=== PATIENT | female | born 1955 | race Caucasian/White ===

== ENCOUNTER 2018-11-01 07:47 | Emergency (ER) | payer MEDICARE, MEDICAID ==
[~2018-11-01] VITALS: Ht 162.6 cm; Wt 68.6 kg
[~2018-11-01 07:47] MED LIST: CYCL-1 PO; HYDR-4353 PO
[2018-11-01 08:10] VITALS: BP 113/71
--- NOTE | 2018-11-01 09:08 | NUR ---
PT REFUSED ICE PACK
[2018-11-01] MEDS ORDERED: LIDOcaine 5% patch TP STA (09:32)
[2018-11-01] MEDS ORDERED: triamcinolone acetonide 40mg/ml inj IM ONE (09:35)
[2018-11-01] MEDS ORDERED: ketorolac trometh inj. 60 MG/2 ML VIAL IM ONE (09:35)
[2018-11-01] MEDS ORDERED: METH4TAB81 PO (09:56)
== END 2018-11-01 10:10 | disposition home or self-care (01) ==
LOC: ER 07:48
DX: M43.6 Torticollis (principal); M25.511 Pain in right shoulder; G89.29 Other chronic pain; Z88.8 Allergy status to other drugs, medicaments and biological substances; Z79.899 Other long term (current) drug therapy; X58.XXXA Exposure to other specified factors, initial encounter; Y93.89 Activity, other specified; Y92.89 Other specified places as the place of occurrence of the external cause; Y99.8 Other external cause status
CPT/HCPCS: 96372; 99283; J1885; J3301

== ENCOUNTER 2019-08-08 07:51 | Emergency (ER) | payer MEDICAID, MEDICARE ==
[~2019-08-08] VITALS: Ht 162.6 cm; Wt 71.9 kg
[~2019-08-08 07:51] MED LIST changes: +METH4TAB81 PO
[2019-08-08] MEDS ORDERED: ketorolac trometh inj. 60 MG/2 ML VIAL IM ONE (08:25)
[2019-08-08] MEDS ORDERED: diazepam 5mg tablet PO ONE (08:25)
[2019-08-08] MEDS ORDERED: HYDROcodone/acetaminophen 5mg/325mg tablet PO ONE (08:25)
[2019-08-08] MEDS ORDERED: METH500T6 PO (08:27)
[2019-08-08] MEDS ORDERED: ACET-3067 PO (08:27)
[2019-08-08 08:39] VITALS: BP 133/96
== END 2019-08-08 08:40 | disposition home or self-care (01) ==
LOC: ER 07:52
DX: M54.12 Radiculopathy, cervical region (principal); G89.29 Other chronic pain; F17.200 Nicotine dependence, unspecified, uncomplicated; Z88.8 Allergy status to other drugs, medicaments and biological substances; Z79.899 Other long term (current) drug therapy
CPT/HCPCS: 96372; 99283; J1885

== ENCOUNTER 2019-08-12 07:56 | Emergency (ER) | payer MEDICARE ==
[~2019-08-12] VITALS: Ht 162.6 cm; Wt 72.7 kg
[~2019-08-12 07:56] MED LIST changes: +ACET-3067 PO; +METH500T6 PO
[2019-08-12] MEDS ORDERED: LIDOcaine 1% 30ml preserv. free vial SQ STA (09:04)
[2019-08-12] MEDS ORDERED: ketorolac tromethamine 15mg/ml inj. IM ONE (09:05)
[2019-08-12 10:15] LABS: CLARITY,URINE SLIGHTLY CLOUDY (Clear); COLOR,URINE YELLOW (Yellow); GLUCOSE, URINE NEGATIVE (Neg); KETONES,URINE NEGATIVE (Neg); LEUKOCYTE ESTERASE ,URINE TRACE (Neg); NITRITES, URINE NEGATIVE (Neg); OCCULT BLOOD,URINE SMALL (Neg); PH,URINE 6.5 (4.8-8.0); PROTEIN,URINE NEGATIVE (Neg); UROBILINOGEN,URINE 0.2 E.U/dL (0.2-1.0)
[2019-08-12 10:19] LABS: UA COLLECTION TYPE CLN CATCH MIDSTREAM
[2019-08-12 10:30] LABS: BACTERIA,URINE NONE SEEN /HPF (Neg); MUCUS STRANDS MODERATE /LPF (Neg); RBC,URINE 0-2 /HPF (0-2); SQUAMOUS EPITHELIAL CELL,UR FEW /LPF (FEW); WBC,URINE 0-4 /HPF (0-4)
[2019-08-12] MEDS ORDERED: LIDOcaine 5% patch TP STA (10:45)
[2019-08-12] MEDS ORDERED: LIDO700A32 TOP (10:55)
[2019-08-12] MEDS ORDERED: BACL-11 PO (10:55)
[2019-08-12 11:14] VITALS: BP 135/84
== END 2019-08-12 11:17 | disposition home or self-care (01) ==
LOC: ER 07:57
DX: S16.1XXA Strain of muscle, fascia and tendon at neck level, initial encounter (principal); S13.4XXA Sprain of ligaments of cervical spine, initial encounter; M54.5 Low back pain; M25.512 Pain in left shoulder; R10.30 Lower abdominal pain, unspecified; G89.29 Other chronic pain; Z88.8 Allergy status to other drugs, medicaments and biological substances; Z79.899 Other long term (current) drug therapy; X58.XXXA Exposure to other specified factors, initial encounter; Y93.89 Activity, other specified; Y92.89 Other specified places as the place of occurrence of the external cause; Y99.8 Other external cause status
CPT/HCPCS: 20552; 72040; 72100; 81001; 87088; 96372; 99284; J1885

== ENCOUNTER 2022-07-29 10:13 | Emergency (ER) | payer BC ==
[~2022-07-29] VITALS: Ht 162.6 cm; Wt 72.6 kg
[2022-07-29 10:13] VITALS: BP 146/89
[~2022-07-29 10:13] MED LIST changes: -ACET-3067 PO; +ALBU8.5H17 INH; +APIX5TAB3 PO; -CYCL-1 PO; +HYDR-3972 PO; -HYDR-4353 PO; +IPRA4AER IH; +LEVO750T68 PO; -METH4TAB81 PO; -METH500T6 PO; +NICO-631 TD; +PRED20TA PO; +PREG50CA64 PO
[2022-07-29] MEDS ORDERED: LIDOcaine 5% patch TP STA (11:29)
[2022-07-29] MEDS ORDERED: ketorolac trometh. 30mg/ml inj. IM ONE (11:30)
[2022-07-29] MEDS ORDERED: LIDO-15 TOP (11:33)
[2022-07-29] MEDS ORDERED: BACL-11 PO (11:33)
== END 2022-07-29 11:49 | disposition home or self-care (01) ==
LOC: ER 10:13
DX: M54.9 Dorsalgia, unspecified (principal); G89.29 Other chronic pain; Z88.8 Allergy status to other drugs, medicaments and biological substances; Z79.899 Other long term (current) drug therapy
CPT/HCPCS: 96372; 99283; J1885

== ENCOUNTER 2022-09-28 15:24 | Emergency (ER) | payer BC ==
[~2022-09-28] VITALS: Ht 162.6 cm; Wt 70.8 kg
[~2022-09-28 15:24] MED LIST changes: +BACL-11 PO; +LIDO-15 TOP
[2022-09-28 15:44] VITALS: BP 158/80; PULSE 89; RESP 29; TEMP 98.3; O2SAT 97
[2022-09-28] MEDS ORDERED: LIDOcaine 5% patch TP STA (16:16)
[2022-09-28] MEDS ORDERED: BACL20TA PO (16:26)
[2022-09-28] MEDS ORDERED: METR-159 PO (16:26)
== END 2022-09-28 16:51 | disposition home or self-care (01) ==
LOC: ER 15:25
DX: M43.6 Torticollis (principal); R19.7 Diarrhea, unspecified; Z88.8 Allergy status to other drugs, medicaments and biological substances; Z79.2 Long term (current) use of antibiotics; Z79.899 Other long term (current) drug therapy
CPT/HCPCS: 72040; 99283

== ENCOUNTER 2024-09-25 10:24 | Inpatient (IN) | payer BC ==
[~2024-09-25] VITALS: Ht 162.6 cm; Wt 65.9 kg
[~2024-09-25 10:24] MED LIST changes: +BACL20TA PO; -PREG50CA64 PO; +PREG50CA65 PO
[2024-09-25 10:49] LABS: MEAN PLATELET VOLUME 8.1 FL (7.4-10.4); RED CELL DISTRIBUTION WIDTH 13.6 % (11.5-14.5)
[2024-09-25 11:04] LABS: CREATININE 0.66 MG/DL (0.40-0.90); TOTAL CARBON DIOXIDE 29.5 MMOL/L (24-32); eCRCL 69 ML/MIN; eGFR 89 ML/MIN
[2024-09-25 13:34] LABS: LEUKOCYTE ESTERASE ,URINE NEGATIVE (Neg); NITRITES, URINE NEGATIVE (Neg); OCCULT BLOOD,URINE TRACE-INTACT (Neg)
[2024-09-25 13:37] LABS: UA COLLECTION TYPE CLN CATCH MIDSTREAM
[2024-09-25 13:38] LABS: MUCUS STRANDS FEW /LPF (Neg); SQUAMOUS EPITHELIAL CELL,UR FEW /LPF (FEW)
--- NOTE | 2024-09-25 14:41 | Physician Documentation ---
History of Present Illness ~ Chief Complaint: Abdominal Pain Stated Complaint: ABD PAIN Time Seen by MD: 12:16 Primary Medical Doctor: DR HAMMER Source: patient Mode of Arrival: POV Exam Limitations: no limitations HPI Chief Complaint: Abdominal pain Caveat: None Independent Historians: None History of Present Illness: Patient is a 69-year-old woman who comes in complaining of right upper quadrant abdominal pain that radiates down around into the lower abdomen on the right. This began one week ago. Patient's pain is currently mild. Patient states that she wakes up with a pain every morning in his able to eat a small breakfast without any difficulties. But if she eats anything between breakfast and dinner she gets severe burning pain. No nausea or vomiting. No diarrhea. No blood in the urine or blood in the stool. No fever. No other alleviating or exacerbating factors other than if she eats lunch her pain gets worse. Review of systems: All systems were reviewed and are negative except for what is indicated in the history of present illness. Past Medical History: Chronic neck and back pain, arthritis Past Surgical History: None Social History: Tobacco use, denies alcohol use, denies drug use Medications: Reviewed as documented Nursing Notes Allergies: Reviewed as documented in Nursing Notes Medication Reconciliation Allergies: Coded Allergies: cyclobenzaprine (Verified Allergy, Unknown, TACHYCARDIA AND RESTLESS, 09/25/24) Scheduled Apixaban (Eliquis), 10 MG PO BID Baclofen (Baclofen), 1 TABLET PO TID Ipratropium/Albuterol Sulfate (Combivent Respimat Inhal [place]), 2 PUFFS IH BID Levofloxacin (Levofloxacin), 750 MG PO DAILY Nicotine 14 MG Patch* (Habitrol 14 MG Patch*), 1 PATCH TD DAILY Prednisone* (Prednisone*), 60 MG PO Q24H Pregabalin (Pregabalin), 1 CAP PO BID, (Reported) Scheduled PRN Albuterol Sulfate (Proair Hfa), 2 PUFFS INH Q4HPRN PRN for wheezing Baclofen (Baclofen), 1 TAB PO Q8H PRN for muscle spasms Hydrocodone Bit/Acetaminophen (Hydrocodon-Acetaminophn 10-325 tablet), 1 TAB PO QID PRN for moderate or severe pain 4-10, (Reported) Lidocaine/Menthol (Lidocaine-Menthol 4%-1% Patch), 1 PATCH TOP DAILY PRN for pain Past Medical History Past Medical History: Pneumonia, Chronic Back Pain, Breast Cancer Past Surgical History: no surgical history Alcohol Use: None Drug Use: none Lives with: Family Lives In: Home Occupation: retired Review of Systems All Other Systems at this time: Reviewed and Negative ROS Patient denies any other acute symptoms other than above. All other systems are negative Physical Exam Vital Signs: RN Vital Signs have been reviewed: Yes, Temperature: 98.7, Source: Oral, Heart Rate: 77, Respiratory Rate: 16, BP: 130/66, Pulse Oximetry: 97, Weight: 65.910 Oxygen Flow Rate: 0 Pulse Oximetry Reflects: adequate oxygenation Physical Exam General Appearance: No distress HEENT: Normal OP, moist oral mucosa, PERRL, EOMI Neck: supple, normal ROM, trachea midline Pulmonary: No respiratory distress, CTA, BS equal Cardiac: RRR, no murmur, rub or gallop, GI: nondistended, soft, NEGATIVE MEAD'S SIGN, FAR LATERAL RIGHT SUBCOSTAL TENDERNESS, REMAINING ABDOMEN IS NONTENDER normal bowel sounds, no guarding, no rebound Extremities: normal ROM, no swelling, non-tender Skin: intact, dry, warm, no rashes Neuro: AAOx3, speech is clear, no focal motor weakness Psych: normal affect, good eye contact, no apparent hallucination, normal speech Progress Results/Orders Results/Orders Orders - CARMINE AVERY MD Page Hospitalist (09/25/24 15:29) Fill Out Med Reconciliation (09/25/24 15:29) Completed Orders - CARMINE AVERY MD Cbc/Diff (09/25/24 10:32) BMP (09/25/24 10:32) Lipase (09/25/24 10:32) CMP (09/25/24 10:32) Ua W/Microscopic, Cult If Ind (09/25/24 13:22) Nicotine 14mg Patch-24hr (Habitrol Patch (09/25/24 16:50) Medications Received in ER Medications (Trade) Dose Ordered Sig/Glenn Route PRN Reason Start Time Stop Time Status Last Admin Dose Admin (Habitrol patch) 1 patch ONCE ONCE TD 09/25/24 16:50 09/25/24 16:51 DC 09/25/24 17:03 1 PATCH Vital Signs 09/25/24 09/25/24 09/25/24 09/25/24 10:26 12:49 12:49 13:31 Temp 98.7 Pulse 92 79 77 Resp 18 18 18 16 B/P (MAP) 14/ 133/65 (87) 130/66 (87) Pulse Ox 97 96 97 O2 Flow Rate 0 0 09/25/24 09/25/24 15:02 15:56 Pulse 79 83 Resp 18 16 B/P (MAP) 131/69 (89) 152/74 (100) Pulse Ox 95 96 O2 Flow Rate 0 0 Laboratory Tests Test 09/25/24 10:41 09/25/24 13:22 White Blood Count 7.5 Red Blood Count 4.88 Hemoglobin 14.5 Hematocrit 44.0 Mean Corpuscular Volume 90.1 Mean Corpuscular Hemoglobin 29.7 Mean Corpuscular Hemoglobin Concent 33.0 Red Cell Distribution Width 13.6 Platelet Count 228 Mean Platelet Volume 8.1 Neutrophils (%) (Auto) 73.0 Lymphocytes (%) (Auto) 16.7 L Monocytes (%) (Auto) 8.7 Eosinophils (%) (Auto) 1.2 Basophils (%) (Auto) 0.4 Neutrophils # (Auto) 5.5 Lymphocytes # (Auto) 1.3 Monocytes # (Auto) 0.7 Eosinophils # (Auto) 0.1 Basophils # (Auto) 0.0 CBC Comment Sodium Level 136 Potassium Level 3.9 Chloride Level 103 Carbon Dioxide Level 29.5 Anion Gap 4 L Blood Urea Nitrogen 7 Creatinine 0.66 Estimated GFR/1.73 m2 89 BUN/Creatinine Ratio 10.6 Glucose Level 111 H Calcium Level 8.8 Total Bilirubin 0.4 Aspartate Amino Transf (AST/SGOT) 19 Alanine Aminotransferase (ALT/SGPT) 26 Alkaline Phosphatase 71 Total Protein 8.0 Albumin 3.6 Globulin 4.4 H Albumin/Globulin Ratio 0.8 L Lipase 37 Chemistry Comments Urine Specimen Description Cln catch midstream Urine Color Yellow Urine Clarity Clear Urine pH 6.0 Urine Specific [place] 1.015 Urine Protein Negative Urine Glucose (UA) Negative Urine Ketones Negative Urine Occult Blood Trace-intact Urine Nitrite Negative Urine Bilirubin Negative Urine Urobilinogen 0.2 Urine Leukocyte Esterase Negative Urine RBC 0-2 Urine WBC 0-4 Urine Squamous Epithelial Cells Few Urine Bacteria None seen Urine Mucus Few Urine Culture Indicated Not ind Volume Urine Centrifuged 10 ml Urine Comment Medical Decision Making Findings Differential diagnosis includes but is not limited to: Acute cholecystitis, acute pancreatitis, cholelithiasis with biliary colic, choledocholithiasis, gastritis, duodenitis, peptic ulcer disease, gastric ulcer disease, hepatic steatosis Abdominal ultrasound, indication: Right upper quadrant abdominal pain Impression: 1. There is a stone in the neck of the gallbladder. There is no gall bladder thickening or biliary dilatation. Technologist reports a negative sonographic mead's sign. Laboratory data independent interpretation: CBC: Normal CMP: Normal, lipase 37 Urinalysis: Unremarkable Emergency department course/medical decision-making: PRESENTS WITH RIGHT UPPER QUADRANT ABDOMINAL PAIN. PATIENT'S ULTRASOUND SHOWS A GALLBLADDER WITH A NON MOBILE LODGED STONE IN THE NECK. PATIENT HAS NORMAL LFTS. NO EVIDENCE OF CHOLEDOCHOLITHIASIS. SURGERY BLEED CONSULTED. RECOMMEND ADMISSION FOR CHOLECYSTECTOMY. Test results, treatment plan and all the above discussed with the patient. Consultation/communications: 4:05 p.m.: General surgeon, Dr. Doan consulted. 4:43 p.m.: Case discussed with our resident hospitalist, Dr. Kramer. She will evaluate the patient for admission. Departure Time of Disposition: 15:27 Disposition: 09 ADMITTED INPATIENT Admitted to Inpatient Unit: to hospitalist Admission Level of Care: Med/Surg Impression: Primary Impression: Calculus of gallbladder with obstruction Qualified Codes: K80.21 - Calculus of gallbladder without cholecystitis with obstruction Condition: Stable Referrals: NO PRIMARY CARE PROVIDER (PCP) Education Educated: Patient Educated regarding: diagnosis, treatment Signature Scribe Signature: No scribe Attestation: No scribe CARMINE AVERY MD Sep 25, 2024 14:41
--- NOTE | 2024-09-25 15:23 | RADIOLOGY REPORT ---
Right Upper quadrant Abdominal ultrasound INDICATION: Right upper radiating to lower quadrant pain Technique: 2-D real-time ultrasound was performed with axial and sagittal images submitted for evalu ation. FINDINGS: Liver normal in size without focal mass. Liver measures 13.2 cm there is a 9 x 5 x 10 mm stone in the neck of the gallbladder which is non mobile. No gallbladder wal l thickening. Negative sonographic castaneda's sign. Common bile duct normal in size measuring 5. mm. Right kidney 10 cm in length without stone or hydronephrosis IMPRESSION: 1. There is a stone in the neck of the gallbladder. There is no gallbladder thickening or biliary dil atation. Technologist reports a negative sonographic castaneda's sign.
[2024-09-25] MEDS ORDERED: magnesium sulf-water 4G/100mL 100 ML IV PRN (17:00)
[2024-09-25] MEDS ORDERED: magnesium hydroxide 30ml (MOM) UD suspension PO PRN (17:00)
[2024-09-25] MEDS ORDERED: potassium Cl 40MEQ/1/2NS 520ml 520 ML IV PRN (17:00)
[2024-09-25] MEDS ORDERED: mag hydrox/Alum hydrox/simeth 30ml oral suspension PO PRN (17:00)
[2024-09-25] MEDS ORDERED: HYDROcodone/acetaminophen 10/325mg tab PO PRN (17:00)
[2024-09-25] MEDS ORDERED: magnesium sulf-water 2g/50mL 50 ML IV PRN (17:00)
[2024-09-25] MEDS ORDERED: potassium Cl 20 mEq SR tablet PO PRN (17:00)
[2024-09-25] MEDS ORDERED: ondansetron/PF 4mg/2ml inj IV PRN (17:00)
--- NOTE | 2024-09-25 17:02 | HISTORY AND PHYSICAL ---
History & Physical Providers to CC ~ History of Present Illness Reason for Admit\Complaint: Symptomatic cholelithiasis History of Present Illness Jessica Lawson is a 69-year-old female with past medical history of breast cancer in remission, PE, COPD who presented to the ED with chief complaint of acute onset right upper quadrant abdominal pain that radiates down right lower quadrant abdomen x 1 week. Patient reports associated symptoms of nausea and right upper quadrant abdominal pain with food intake. Patient denies prior KS/CAD, CVA, cardiac arrhythmia, or GIB. Patient denies chest pain, palpitations, shortness of breath, vomiting, diarrhea, melena, hematochezia, hematemesis, dysuria, fever, chills. Initial diagnostic findings are notable for ultrasound abdomen revealing gallstone in the neck of the gallbladder without gallbladder thickening, biliary dilatation, negative sonographic Dunaway's sign. Pertinent negative findings are normal wbc, lipase, LFT, t.bili, afebrile. Surgeon Dr. Doan is consulted. Patient is to be admitted for further workups, treatment, and surgical intervention. Allergies: Coded Allergies: cyclobenzaprine (Verified Allergy, Unknown, TACHYCARDIA AND RESTLESS, 09/25/24) Home Medications Home Medications Active Baclofen 20 Mg Tablet 1 Tablet PO TID Baclofen 10 Mg Tablet 1 Tab PO Q8H PRN 10 Days Lidocaine-Menthol 4%-1% Patch (Lidocaine/Menthol) 1 Each Adh..patch 1 Patch TOP DAILY PRN 10 Days Combivent Respimat Inhal [place] (Albuterol/Ipratropium) 4 Gm Aer.w.adap 2 Puffs IH BID Proair Hfa (Albuterol Sulfate) 1 Puff Inh 2 Puffs INH Q4HPRN PRN 21 Days Levofloxacin 750 Mg Tablet 750 Mg PO DAILY Prednisone* (Prednisone) 20 Mg Tablet 60 Mg PO Q24H 3 tabs daily x 5 days- then 2 tabs daily x 5 days - then 1 tab daily x 5 days Habitrol 14 MG Patch* (Nicotine) 1 Each Patch.td24 1 Patch TD DAILY Eliquis (Apixaban) 5 Mg Tablet 10 Mg PO BID 2 tablets twice a day x5 days then 1 tablet twice a day Reported Pregabalin 50 Mg Capsule 1 Cap PO BID Hydrocodon-Acetaminophn 10-325 tablet (Acetaminophen/Hydrocodone Bitart) 1 Each Tablet 1 Tab PO QID PRN Past Medical History Past Medical History Left breast cancer in remission COPD Pulmonary embolism Chronic pain syndrome Lower back pain Sciatica Past Surgical History Surgical History Comment Left breast lumpectomy Appendectomy Past Social History Social History Comment Alcohol: Denies Tobacco: Current smoker, 30-pack year history Illicit drug use: Denies Living situation: Lives at home with ROS ROS Other than positives in HPI, all 14 review of systems are negative Exam Vitals: Vital Signs Date Time Temp Pulse Resp B/P (MAP) Pulse Ox O2 Delivery O2 Flow Rate FiO2 09/25/24 15:56 83 16 152/74 (100) 96 0 09/25/24 10:26 98.7 General: A&Ox 3, NAD HEENT: Normocephalic, PERRLA Neck: Supple, trachea midline, no JVD Chest: Clear to auscultation bilaterally Cardiovascular: RRR, S1&S2 Abdomen: Positive Dunaway sign, negative rebound tenderness Extremities: No cyanosis/clubbing/or edema Central Nervous System: CN II-XII intact, no focal deficits Musculoskeletal: No paraspinal muscle tenderness, no muscle spasm Skin: Warm and intact Diagnostic Data Last Recorded Lab Results: 09/25/24 1041 09/25/24 1041 Counseling Services Smoking & Tobacco Cessation: > 10 Minutes Additional Plan Assessment & Plan Symptomatic cholelithiasis -wbc wnl, afebrile, lipase wnl, t.bili wnl, no transaminitis, ultrasound abdomen revealing gallstone in the neck of the gallbladder without gallbladder thickening, biliary dilatation, negative sonographic Dunaway's sign -supportive care, Dr. Doan consulted, OR tomorrow Tobacco abuse Left breast cancer, in remission Left lumpectomy HTN COPD, not in acute exacerbation Hx pulmonary embolism, 2 years ago -start nicotine patch, amlodipine, prn hydralazine, prn bronchodilators -pending med rec DVT/VTE prophylaxis: SCDs Code status: Full code I spent a total of 16 minutes on smoking cessation education. I provided extensive counseling regarding smoking cessation. I spent a total of 35 minutes discussing Advanced Care Planning measures with the patient. Advance care planning: Discussed with patient the importance of advance care planning in case of emergent situation. We discussed various resuscitative measures/ ACP with the patient at the time of admission. Patient voiced understanding and patient has decided on a full code status. Date of Service: Sep 25, 2024 Billing Provider: MANUEL HARVEY Common Visit Codes: [id number] INP/OBS CARE (HIGH) Secondary Visit Codes: 49582-[id number] CHNG SMOKING >10MIN, [id number] CARE PLAN 30 MINUTES MANUEL HARVEY Sep 25, 2024 17:01
[2024-09-25] MEDS: nicotine 14mg patch - 24hr TD ONE ×2 (17:03→17:25)
[2024-09-25] MEDS: normal saline 1000ml 1,000 ML IV SCH (17:10)
[2024-09-25] MEDS ORDERED: hydrALAZINE 20mg/ml inj. IV PRN (17:15)
[2024-09-25] MEDS ORDERED: ipratropium/albuterol 3ml nebule NEB PRN (17:30)
[2024-09-25] MEDS ORDERED: albuterol 2.5 MG/3 ML nebule NEB PRN (17:30)
[2024-09-25 17:57] VITALS: PULSE 88; RESP 16; O2SAT 97
[2024-09-25 18:57] VITALS: BP 164/82; PULSE 81; RESP 16; TEMP 97.3; O2SAT 95
[2024-09-25] MEDS: K and/or MAG REPLACEMENT MC SCH (19:47)
[2024-09-25] MEDS: HYDROcodone/acetaminophen 5mg/325mg tablet PO PRN (19:55)
[2024-09-25] MEDS: docusate sod 100mg capsule PO SCH (19:59)
[2024-09-25 22:00] VITALS: BP 117/69; PULSE 83; RESP 18; TEMP 98.6; O2SAT 95
[2024-09-26] VITALS (19 sets, daily range): BP systolic 122–146; BP diastolic 58–84; PULSE 77–99; RESP 14–22; TEMP 97.1–98.4; O2SAT 90–100
[2024-09-26 06:04] LABS: MEAN PLATELET VOLUME 8.3 FL (7.4-10.4); RED CELL DISTRIBUTION WIDTH 13.3 % (11.5-14.5)
[2024-09-26 07:00] LABS: CREATININE 0.39 MG/DL (0.40-0.90); TOTAL CARBON DIOXIDE 26.1 MMOL/L (24-32); eCRCL 118 ML/MIN; eGFR > 90 ML/MIN
[2024-09-26] MEDS: nicotine 14mg patch - 24hr TD SCH (07:54)
[2024-09-26] MEDS: INDOCYANINE GREEN 25 MG/10 ML VIAL IV STA ×2 (09:35→10:30)
--- NOTE | 2024-09-26 09:41 | CONSULTATION REPORT ---
History of Present Illness Providers to CC CC: GERMÁN GOMES MD ~ Reason for Admit\Admit Dx: Symptomatic cholelithiasis Refering MD: DR HAMMER History of Present Illness Patient presents with several day history of worsening postprandial epigastric pain that radiates to her right upper quadrant. Associated nausea and symptoms seemed to be relieved with the vomiting Pain radiating to the right scapula and worsened yesterday so she presented to the emergency room where she was found to have a gallstone in the neck of the gallbladder Persistent and intermittent symptoms yielded admission to the hospitalist service for surgical consultation Patient denies any dark urine, cara-colored stool or jaundice Laboratory studies reviewed and normal Negative sonographic Dunaway's or overt signs of acute calculous cholecystitis Symptoms resolve with NPO status Allergies: Coded Allergies: cyclobenzaprine (Verified Allergy, Unknown, TACHYCARDIA AND RESTLESS, 09/25/24) Home Medications Home Medications Active Baclofen 20 Mg Tablet 1 Tablet PO TID Baclofen 10 Mg Tablet 1 Tab PO Q8H PRN 10 Days Lidocaine-Menthol 4%-1% Patch (Lidocaine/Menthol) 1 Each Adh..patch 1 Patch TOP DAILY PRN 10 Days Combivent Respimat Inhal [place] (Albuterol/Ipratropium) 4 Gm Aer.w.adap 2 Puffs IH BID Proair Hfa (Albuterol Sulfate) 1 Puff Inh 2 Puffs INH Q4HPRN PRN 21 Days Levofloxacin 750 Mg Tablet 750 Mg PO DAILY Prednisone* (Prednisone) 20 Mg Tablet 60 Mg PO Q24H 3 tabs daily x 5 days- then 2 tabs daily x 5 days - then 1 tab daily x 5 days Habitrol 14 MG Patch* (Nicotine) 1 Each Patch.td24 1 Patch TD DAILY Eliquis (Apixaban) 5 Mg Tablet 10 Mg PO BID 2 tablets twice a day x5 days then 1 tablet twice a day Reported Pregabalin 50 Mg Capsule 1 Cap PO BID Hydrocodon-Acetaminophn 10-325 tablet (Acetaminophen/Hydrocodone Bitart) 1 Each Tablet 1 Tab PO QID PRN Past Medical History Medical History Comment Left breast cancer in remission COPD Pulmonary embolism Chronic pain syndrome Lower back pain Sciatica Past Surgical History Surgical History Comment No abdominal surgical history reported Past Family History Family History Comment Not applicable Past Social History Social History Comment Negative x3 Health Maintenance Health Maintenance Not applicable Physical Exam Last Vital Signs Recorded: RN Vital Signs have been reviewed: Yes, Temperature: 98.1, Source: Oral, Heart Rate: 89, Respiratory Rate: 16, BP: 146/69, Pulse Oximetry: 92, Weight: 65.910 General Appearance: alert, WD/WN, no apparent distress EENT: PERRL/EOMI; No: scleral icterus (R), scleral icterus (L) Neck: normal inspection, full range of motion Respiratory: lungs clear Cardiovascular: regular rate, rhythm Gastrointestinal Soft and nondistended Minimal epigastric and right upper quadrant tenderness to palpation Dunaway's sign negative Rectal: deferred Back: normal inspection, no CVA tenderness Extremities: normal range of motion, no edema Neurologic: oriented x4 Psychiatric: normal mood/affect Skin: normal color; No: jaundice Lymphatic: no adenopathy Review of Systems ROS ROS Comments: Reviewed and negative with the exception of those found in the history of present illness Results Diagram Lab Result Diagram: 09/26/24 0511 09/26/24 0511 Assessment/Plan Problems/Diagnosis: (1) Symptomatic cholelithiasis Assessment & Plan: Chronic and recurrent Surgery indicated The risks, benefits, and alternatives to a robotic assisted, laparoscopic possible open cholecystectomy were discussed with the patient. Risks include, but are not limited to, bleeding, infection, injury to intra-abdominal structures, injury to the biliary tree, postoperative bile leak and retained common bile duct stone. Patient verbalized understanding and wishes to proceed with surgery. We will do so today GERMÁN GOMES MD Sep 26, 2024 09:41
[2024-09-26] MEDS ORDERED: BUPIVAcaine 2.5mg/ml inj 50ml vial (contains preservative) ONE (10:05)
[2024-09-26] MEDS ORDERED: LIDOcaine 1% (10mg/ml)w/preservative inj. 20ml MDV ONE (10:06)
--- NOTE | 2024-09-26 10:59 | ELECTROCARDIOGRAPH REPORT ---
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 Adal Bernardo Measurements Intervals [place] Rate: 85 P: 41 MI: 154 QRS: 42 QRSD: 87 T: 12 QT: 389 QTc: 463 Interpretive Statements Sinus rhythm Abnormal R-wave progression, delayed precordial transition Electronically Signed On 09-26-2024 13:12:[address] Adal Bernardo Please click the below link to view image of tracing.
[2024-09-26] MEDS ORDERED: enalaprilat 1.25mg/ml 2ml vial IV PRN (11:00)
[2024-09-26] MEDS ORDERED: morphine 4 MG/ML inj SYRINge IV PRN (11:00)
[2024-09-26] MEDS ORDERED: meperidine/PF 25mg/ml syringe IV PRN ×3 (11:00)
[2024-09-26] MEDS ORDERED: labetalol 20mg/4ml (5mg/ml) syringe IV PRN (11:00)
[2024-09-26] MEDS ORDERED: fentaNYL/PF 50MCG/1 ML 2ML syringe ONE (11:02)
[2024-09-26] MEDS ORDERED: midazolam 1 mg/ML 2ml injection ONE (11:02)
[2024-09-26] MEDS ORDERED: LIDOcaine 2% (20mg/ml) 5ml vial ONE (11:11)
[2024-09-26] MEDS ORDERED: propofol inj 20 ML IV ONE (11:11)
[2024-09-26] MEDS ORDERED: rocuronium 10mg/ml inj IV ONE (11:15)
[2024-09-26] MEDS ORDERED: ondansetron/PF 4mg/2ml inj ONE (11:15)
[2024-09-26] MEDS ORDERED: dexamethasone sod phosphate 4mg/ml inj. ONE (11:15)
[2024-09-26] MEDS ORDERED: morphine 4 MG/ML inj SYRINge ONE (12:04)
[2024-09-26] MEDS: BUPIVAcaine/PF 2.5 mg/ml (0.25%) 30ml vial IJ ONE (12:16)
[2024-09-26] MEDS ORDERED: glycopyrrolate 0.2mg/ml inj ONE (12:21)
[2024-09-26] MEDS ORDERED: oxyCODONE/APAP 5-325mg tablet PO PRN (12:25)
--- NOTE | 2024-09-26 12:32 | OPERATIVE REPORT ---
Operative Report Providers to CC CC: JOURDAN GOMES MD ~ Date of Procedure: Sep 26, 2024 Pre-Operative Diagnosis: Symptomatic cholelithiasis Post-Operative Diagnosis Symptomatic cholelithiasis 1 cm umbilical hernia Procedure Performed Robotic assisted, laparoscopic cholecystectomy 1 cm umbilical hernia repair Surgeon: Jourdan Gomes MD FACS Director Of Cath Lab None Anesthesiologist: Jacob Villela Type of Anesthesia: General Findings: 1 cm umbilical hernia Liver somewhat enlarged Clear visualization of the cystic duct and common bile duct with a critical view of safety confirmed Wound class III due to small spillage of bile Complications None Prosthetics\Implants used: None Estimated Blood Loss: Minimal Specimen Removed: Gallbladder Description of Procedure: Patient was brought to the operating room and identified by the nursing staff and the attending physician. Patient was placed supine and general anesthesia was induced. A supraumbilical, midline incision was made, long enough to accommodate a 12 mm Christianson port. Christianson technique was used to gain entry into the abdomen. During dissection, a small hernia sac was encountered, adherent to the underside of the umbilical dermis. This was mobilized, exposing a 1 cm fascial defect that was used for the Christianson port placement. Stay sutures were placed in the Christianson port anchored to the fascia. Abdomen was insufflated without incident. Laparoscope was inserted and the abdomen surveyed. Secondary, 8.5 mm robotic trochars were placed in the left upper quadrant and right lateral abdomen. Gallbladder was readily identified. Robotic arm was docked to the patient. Robotic instruments were guided intra- abdominally under laparoscopic visualization. There were some adhesions between the gallbladder and the transverse mesocolon that were taken down with the electrocautery. The liver was somewhat enlarged making retraction of the gal lbladder technically more difficult but not prohibitively so. Fundus of the gallbladder was grasped and retracted over the dome of the liver. Infundibulum was retracted towards the right lower quadrant. Firefly technology was used to obtain a fluorescent cholangiogram and visualize the pertinent anatomy. Cystic duct was clearly visualized. Peritoneum overlying the triangle was incised with hook electrocautery. This allowed for circumferential dissection of the cystic duct and artery. Critical view of safety was obtained. Duct and artery were then clipped with hemo-lock clips and both structures divided. Gallbladder was retracted laterally and dissected out of the gallbladder fossa. The very tiny rent in the gallbladder fossa led to a few drops of bile leaking from the gallbladder. Gallbladder was held aside and fluorescent cholangiogram of the gallbladder fossa was used to confirm no evidence of bile leak. Gallbladder was placed in a laparoscopic retrieval bag. Secondary trochars were removed and the abdomen allowed to deflate. Christianson port was removed with the specimen in its retrieval bag. While removing the retrieval bag, there was small spillage of bile in the umbilical wound. This was irrigated and cleaned until completely clear. Fascia at the umbilical port site was closed with a combination of 0 Ethibond 0 Vicryl sutures, thus repairing the umbilical hernia defect.. Skin was closed with 4-0 Monocryl sutures in a subcuticular fashion About 40 cc of local anesthetic was used during the case. Sterile dressings were applied. Patient was awakened and taken to the postanesthesia care unit in stable condition. Counts repoted as correct: Yes JOURDAN GOMES MD Sep 26, 2024 12:32
[2024-09-26] MEDS ORDERED: HYDROmorphone/PF 0.2 MG/ML SYRINGE IV PRN ×2 (12:55)
[2024-09-26] MEDS: ondansetron/PF 4mg/2ml inj IV PRN (13:00)
--- NOTE | 2024-09-26 13:53 | PROGRESS NOTE ---
Daily Progress Note Providers to CC ~ Antibiotic Timeout Antibiotic Ordered?: Yes If Yes, Indications: intraop prophylaxis Subjective No acute events overnight. Patient examined at bedside pre-op. No new complaints, not in acute distress. Patient denies chest pain, sob, palpitations, n/v/d. s/p laparoscopic cholecystectomy and 1cm umbilical hernia repair. Vss, labs notable for downtrending Cr on IVF. Objective Vital Signs Date Time Temp Pulse Resp B/P (MAP) Pulse Ox O2 Delivery O2 Flow Rate FiO2 09/26/24 13:20 78 16 131/65 (87) 99 Nasal Cannula 2.0 09/26/24 12:28 97.3 09/26/24 08:22 21 Result Diagram: 09/26/24 0511 09/26/24 0511 Physical Exam General: A&Ox 3, NAD HEENT: Normocephalic, PERRLA Neck: Supple, trachea midline, no JVD Chest: Clear to auscultation bilaterally Cardiovascular: RRR, S1&S2 Abdomen: Positive Dunaway sign, negative rebound tenderness Extremities: No cyanosis/clubbing/or edema Central Nervous System: CN II-XII intact, no focal deficits Musculoskeletal: No paraspinal muscle tenderness, no muscle spasm Skin: Warm and intact Problem\Assessment\Plan Assessment & Plan Symptomatic cholelithiasis Umbilical hernia Prerenal DONALD 2/2 dehydration/vasomotor nephropathy- POA -wbc wnl, afebrile, lipase wnl, t.bili wnl, no transaminitis, ultrasound abdomen revealing gallstone in the neck of the gallbladder without gallbladder thickening, biliary dilatation, negative sonographic Dunaway's sign -supportive care, Dr. Doan consulted, OR tomorrow -09/26: s/p laparoscopic cholecystectomy and 1cm umbilical hernia repair Tobacco abuse Left breast cancer, in remission Left lumpectomy HTN COPD, not in acute exacerbation Hx pulmonary embolism, recurrent (2022) -start nicotine patch, amlodipine, Eliquis, prn hydralazine, prn bronchodilators DVT/VTE prophylaxis: SCDs Code status: Full code Date of Service: Sep 26, 2024 Billing Provider: MANUEL HARVEY Common Visit Codes: [id number] INP/OBS CARE(HIGH) MANUEL HARVEY Sep 26, 2024 13:53
[2024-09-26] MEDS: ringers solution, lacted 1,000 ML IV SCH (14:49)
[2024-09-26] MEDS: LIDOcaine 1% 30ml preserv. free vial IJ ONE (17:39)
[2024-09-27 02:11] VITALS: BP 113/53; PULSE 90; RESP 16; TEMP 98.2; O2SAT 92
[2024-09-27 05:50] LABS: MEAN PLATELET VOLUME 8.3 FL (7.4-10.4); RED CELL DISTRIBUTION WIDTH 12.9 % (11.5-14.5)
[2024-09-27 05:55] LABS: CREATININE 0.31 MG/DL (0.40-0.90); TOTAL CARBON DIOXIDE 22.6 MMOL/L (24-32); eCRCL 148 ML/MIN; eGFR > 90 ML/MIN
[2024-09-27 06:00] VITALS: BP 134/66; PULSE 94; RESP 16; TEMP 98.5; O2SAT 93
[2024-09-27] MEDS: potassium Cl 20 mEq SR tablet PO PRN (07:26)
[2024-09-27 10:00] VITALS: BP 100/55; PULSE 91; RESP 15; TEMP 98.4; O2SAT 94
--- NOTE | 2024-09-27 15:26 | DISCHARGE SUMMARY ---
Discharge Summary Providers to CC ~ Discharge Summary Admission Diagnosis: Symptomatic cholelithiasis, DONALD Hospital Course DATE OF ADMISSION: 09/25/24 DATE OF DISCHARGE: 09/27/24 Discharge Diagnosis\Comment: Symptomatic cholelithiasis Umbilical hernia Prerenal DONALD 2/2 dehydration/vasomotor nephropathy- POA Operations\Procedures: Robotic laparoscopic cholecystectomy and umbilical hernia repair Consultants: Jourdan Yu Complications: None Condition on DC: Stable Continued Medications: Albuterol Sulfate (Proair Hfa) 1 Puff Inh 2 PUFFS INH Q4HPRN PRN for wheezing for 21 Days, #1 INHALER 0 Refills Baclofen (Baclofen) 10 Mg Tablet 1 TAB PO Q8H PRN for muscle spasms for 10 Days, #30 TAB 0 Refills Hydrocodone Bit/Acetaminophen (Hydrocodon-Acetaminophn 10-325 tablet) 1 Each Tablet 1 TAB PO QID PRN for moderate or severe pain 4-10 Ipratropium/Albuterol Sulfate (Combivent Respimat Inhal [place]) 4 Gm Aer.w.adap 2 PUFFS IH BID, #1 INH Lidocaine/Menthol (Lidocaine-Menthol 4%-1% Patch) 1 Each Adh..patch 1 PATCH TOP DAILY PRN for pain for 10 Days, #10 PATCH Nicotine 14 MG Patch* (Habitrol 14 MG Patch*) 1 Each Patch.td24 1 PATCH TD DAILY, #24 PATCH Pregabalin (Pregabalin) 50 Mg Capsule 1 CAP PO BID Discontinued Medications: Baclofen (Baclofen) 20 Mg Tablet 1 TABLET PO TID, #20 TABLET 2 Refills Levofloxacin (Levofloxacin) 750 Mg Tablet 750 MG PO DAILY, #7 TAB Discharge Summary: History of Present Illness Jessica Lawson is a 69-year-old female with past medical history of breast cancer in remission, PE, COPD who presented to the ED with chief complaint of acute onset right upper quadrant abdominal pain that radiates down right lower quadrant abdomen x 1 week. Patient reports associated symptoms of nausea and right upper quadrant abdominal pain with food intake. Patient denies prior AR/CAD, CVA, cardiac arrhythmia, or GIB. Patient denies chest pain, palpitations, shortness of breath, vomiting, diarrhea, melena, hematochezia, hematemesis, dysuria, fever, chills. Initial diagnostic findings are notable for ultrasound abdomen revealing gallstone in the neck of the gallbladder without gallbladder thickening, biliary dilatation, negative sonographic Dunaway's sign. Pertinent negative findings are normal wbc, lipase, LFT, t.bili, afebrile. Patient is to be admitted for further workups, treatment, and surgical intervention. Hospital Course Case was consulted with surgeon Dr. Doan and patient underwent laparoscopic cholecystectomy on 09/26/24 without complication. Intra-op findings of 1cm umbilical hernia noted which was repaired also. Acute kidney injury resolved with intravenous fluids. Patient did not experience further complications throughout the entire hospital stay made a good recovery. Patient was seen and examined on the day of discharge. All labs, diagnostic workups, discharge plan discussed with patient in details during visit before discharge. All questions and concerns answered to the best of my professional knowledge. Patient is to be discharged to home to self and to follow-up with PCP and Dr. Doan within 2 weeks. Physical Exam General: A&Ox 3, NAD HEENT: Normocephalic, PERRLA Neck: Supple, trachea midline, no JVD Chest: Clear to auscultation bilaterally Cardiovascular: RRR, S1&S2 GI: Soft and nontender Extremities: No cyanosis/clubbing/or edema GEOPHYSICIST: CN II-XII intact, no focal deficits Musculoskeletal: No paraspinal muscle tenderness, no muscle spasm Skin: Laparoscopic incisions w/o s/s of infection *Problems/Diagnosis: (1) Symptomatic cholelithiasis Status: Acute Total Time Spent on D/C: > 30 Minutes Date of Service: Sep 27, 2024 Billing Provider: MANUEL HARVEY Common Visit Codes: 31487-LQE/OBS DISCH DAY >30min MANUEL HARVEY Sep 27, 2024 15:26
--- NOTE | 2024-09-28 18:27 | PATHOLOGY REPORT ---
[facility] [address] [place] [address] SURGICAL PATHOLOGY REPORT CaseNumber: [id number] Surgeon:Jourdan Doan M.D. CLINICAL INFORMATION CLINICAL INFORMATION: Not provided. DIAGNOSIS DIAGNOSIS: GALLBLADDER; ROBOTIC-ASSISTED LAPAROSCOPIC CHOL - CHOLELITHIASIS AND CHRONIC CHOLECYSTITIS. MICROSCOPIC DESCRIPTION GROSS DESCRIPTION GROSS DESCRIPTION: Received in formalin labeled with the patient's name, number, and "cholecyst" is a disrupted gallbladder which measures 7.5 cm long by 3 cm in diameter. The serosa is smooth and starks. The surgical bed is unremarkable. Sectioning reveals a small amount of viscous dark green bile and a 1.6 cm starks stone. The mucosa is intact and without focal lesion. The wall of the gallbladder measures up to 0.3 cm. Pressure Sealer And Tester sections of the neck and wall of the gallbladder are submitted as A1. T he time at which the specimen was removed was 1202. The time at which the specimen was placed in form mari was 1210. ([facility]) Electronically signed by: Tony Gibson M.D. 09/28/2024 5:55:00 PM
== END 2024-09-27 12:09 | disposition home or self-care (01) | DRG 417 ==
LOC: ER 10:25 → ED HOLD 17:01 → ORTHO 4S 18:49
PROVIDERS: ADMIT Nurse Practitioner Family; ATTEND Nurse Practitioner Family
PROC: 0WQF4ZZ Repair Abdominal Wall, Percutaneous Endoscopic Approach (ICD-10-PCS; 2024-09-26)
PROC: 8E0W4CZ Robotic Assisted Procedure of Trunk Region, Percutaneous Endoscopic Approach (ICD-10-PCS; 2024-09-26)
PROC: BF121ZZ Fluoroscopy of Gallbladder using Low Osmolar Contrast (ICD-10-PCS; 2024-09-26)
PROC: 0FT44ZZ Resection of Gallbladder, Percutaneous Endoscopic Approach (ICD-10-PCS; principal; 2024-09-26 10:58)
DX: K80.21 Calculus of gallbladder without cholecystitis with obstruction (principal); N17.0 Acute kidney failure with tubular necrosis; F17.210 Nicotine dependence, cigarettes, uncomplicated; G89.4 Chronic pain syndrome; I10 Essential (primary) hypertension; J44.9 Chronic obstructive pulmonary disease, unspecified; E86.0 Dehydration; K42.9 Umbilical hernia without obstruction or gangrene; M54.50 Low back pain, unspecified; Z79.899 Other long term (current) drug therapy; Z71.6 Tobacco abuse counseling; Z86.711 Personal history of pulmonary embolism; Z85.3 Personal history of malignant neoplasm of breast; Z88.8 Allergy status to other drugs, medicaments and biological substances
CPT/HCPCS: 36415; 76700; 80053; 81001; 82948; 83690; 83735; 85025; 87081; 93005; 94760; 97116; 97161; 99285; A4215; A4618; A4620; A7000; G0378; J0131; J0690; J1100; J2003; J2250; J2270; J2405; J2704; J2710; J3010; J3490; J7030; J7120